=== PATIENT | male | born 1995 | race Caucasian/White ===

== ENCOUNTER 2022-11-16 09:48 | Outpatient (CLI) | payer OTHER, SELFPAY ==
--- NOTE | 2022-11-16 11:27 | XRR_ITS ---
PROCEDURE INFORMATION: Exam: XR Right Tibia and Fibula Exam date and time: 11/16/2022 11:34 AM Age: 27 years old Clinical indication: Other: Lump on right leg; Additional info: Lump on right leg, medial aspect of tibia TECHNIQUE: Imaging protocol: Radiologic exam of the Right tibia and fibula. Views: 2 views. COMPARISON: No relevant prior studies available. FINDINGS: Bones/joints: There is a focal oblong shaped area of cortical/periosteal thickening along the posteromedial cortex mid shaft of the tibia that extends for 4.5 cm in length whose appearance would favor a benign fibro osseous lesion such as a ossifying fibroma or healed fibrous cortical defect. Remaining osseous structures are unremarkable. There is no fracture. Soft tissues: Unremarkable XR/XR tibia fibula RT 2V 19898 IMPRESSION: 4.5 cm cortical based sclerotic bone lesion mid tibia favoring benign fiber osseous lesion. In view of patient's symptomatology would recommend follow-up nonemergent CT or MRI examination of the lower leg for further assessment.
== END 2022-11-16 09:49 | disposition home or self-care (01) ==
PROVIDERS: PCP Clinical Nurse Specialist Adult Health; Visit Provider Clinical Nurse Specialist Adult Health
DX: R22.41 Localized swelling, mass and lump, right lower limb (principal)
CPT/HCPCS: 73590

== ENCOUNTER 2024-08-31 09:03 | Outpatient (CLI) | payer OTHER, SELFPAY ==
--- NOTE | 2024-08-31 09:30 | US_ITS ---
WS: [id number] ULTRASOUND SOFT TISSUES RIGHT groin HISTORY: right inguinal pain and numbness of right anterior thigh COMPARISON: None available. TECHNIQUE: 2-D and color Doppler imaging is submitted. During the initial imaging there is a hypoechoic soft tissue mass along the RIGHT groin measuring 8 x 10 mm. During the examination with transducer pressure in this area the mass resolved and retracted consistent with a RIGHT inguinal hernia. This was omentum only. No bowel was evident within the herni a. US/US soft tissue/extremity [id number] IMPRESSION: 1. Small RIGHT inguinal hernia contains omentum only. The inguinal hernia was reduced during the ultrasound with slight transducer pressure. 2. No herniated bowel loop. Suspect the hernia will recur with the patient upr ight.
== END 2024-08-31 09:04 | disposition home or self-care (01) ==
PROVIDERS: PCP Clinical Nurse Specialist Adult Health; Visit Provider Clinical Nurse Specialist Adult Health
DX: K40.90 Unilateral inguinal hernia, without obstruction or gangrene, not specified as recurrent (principal); R10.31 Right lower quadrant pain; R20.0 Anesthesia of skin
CPT/HCPCS: 76882

== ENCOUNTER 2024-10-05 05:50 | Day surgery (SDC) | payer OTHER, SELFPAY ==
[2024-10-05] VITALS (13 sets, daily range): BP systolic 125–148; BP diastolic 68–86; PULSE 68–83; RESP 15–19; TEMP 36.4–36.8; O2SAT 95–100; BMI 27.1
--- NOTE | 2024-10-05 05:41 | P.HPUD_ITS ---
Surgery/Procedure H&P Update DATE OF PROCEDURE: October 05, 2024 DATE H&P PERFORMED: 09/23/24 H&P UPDATE INFORMATION: I have reviewed H&P completed within last 30 days, I have examined patient prior to procedure, No changes to prior documentation and H&P is in [facility] EMR on date indicated PLANNED PROCEDURE: Operation Date: 10/05/24 07:00 Proposed Procedures p Laparoscopic Inguinal Hernia Repair with mesh/possible open 39884, K40.90(Right) - King Mcgill MD
[2024-10-05] MEDS: sodium chloride 0.9% 1,000 ML 30 ML IV (06:39)
[2024-10-05] MEDS: VANCOMYCIN ADD-Vantage 1,000 MG in 0.9% NaCl ADD-Vantage 250 ML 250 MG IV (06:40)
--- NOTE | 2024-10-05 06:44 | ANES.PREANE2 ---
Pre-Anesthetic Assessment Height/Weight: Height 1.83 m Weight 90.718 kg Temp Pulse Resp BP Pulse Ox O2 Del Method 97.8 F 83 18 142/85 99 Room Air 10/05/24 06:05 10/05/24 06:05 10/05/24 06:05 10/05/24 06:05 10/05/24 06:05 10/05/24 06:12 Operation Date: 10/05/24 07:00 Proposed Procedures p Laparoscopic Inguinal Hernia Repair with mesh/possible open 81253, K40.90(Right) - King Mcgill MD Familial anesthetic complications: None Was Beta Eyad taken within 24 hours: N/A Was Clonidine taken within 24 hours: N/A Last intake: Intake Last Liquid Date 10/04/24 Last Liquid Time 19:30 Last Solid Date 10/04/24 Last Solid Time 19:30 Social No alcohol and No tobacco Exam alert, oriented x 3, clear to auscultation bilaterally and regular rate & rhythm Airway Mallampati: Class II Dentition: other (2 missing teeth) Anesthetic Plan ASA status: 1 Anesthesia: General Risk of > 500 ml blood loss (7ml/kg in children): No Medications/Allergies Home Medications Medication Instructions Recorded Confirmed Last Taken Type No Known Home Medications 11/16/22 09/23/24 Unknown History Allergies Allergy/AdvReac Type Severity Reaction Status Date / Time Penicillins Allergy Severe ADR-unknown Verified 10/01/24 15:51 [facility] Anesthesia Medical History No pertinent past medical history Surgical History Hx of vasectomy 2022 Family History Mother Cancer breast cancer Social History Smoking and tobacco/nicotine status: never used tobacco/nicotine Alcohol intake: current Alcohol intake frequency: holidays/special occasions only Data Anesthesia Cardiac Studies: No Data to Display
[2024-10-05] MEDS: BUPivacaine 0.25% INJ 10 mL INJECTION (07:35)
[2024-10-05] MEDS: lidocaine-epi 1% PF 1:200,000 30 mL SDV (07:35)
--- NOTE | 2024-10-05 08:30 | P.OP_ITS ---
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 Procedure: Patient was brought into the OR, he was placed in a supine position. General anesthesia was given. The abdomen was prepped and draped in usual sterile fashion. Timeout was conducted. A 15 mm infraumbilical incision was made, the incision was deepened until the anterior rectus sheath was identified, the right anterior rectus sheath was opened with electrocautery, the right rectus muscle was retracted laterally given access to the retrorectus space. The Spacemaker was then introduced carefully into the retrorectus space and advanced to the level of the pubic bone with careful palpation. Under visualization the balloon was insufflated and the preperitoneal space was created. I then placed additional 5 mm trocars in the suprapubic and infraumbilical positions on direct visualization. With careful blunt dissection I was able to completely expose the pubic bone, until the midline was visualized and in the medial side of the femoral vein was visualized. I then proceeded with lateral dissection opening the lateral space of [place]. Once the space was created I then concentrated my efforts on dissecting the cord structures, there was a small indirect sac that was carefully debrided used with blunt dissection, I then was able to identify a lipoma of the cord going into the inguinal canal, the lipoma the cord was successfully reduced to the preperitoneal space. The critical view of safety of the myopectineal orifice was achieved. A large right side 3D max mesh was then introduced into the space, the mesh was placed in a way that it will cover the direct indirect and femoral spaces and was given as a 2 cm overlap under the pubic bone. No need for mesh fixation as the hernia is small and the space was completely filled by the mesh. I proceeded to desufflate the properitoneal space and after 1 minute I reinsufflated to ensure that the mesh position was adequate, after verifying this I proceeded to desufflate the space under direct visualization. The trocars were right and removed. The anterior rectus sheath was closed with #0 Vicryl. The wounds were closed with #3-0 Vicryl for subcutaneous tissue #4 Monocryl for the skin. At the end of the procedure all counts were correct, the patient tolerated well the procedure was transferred to PACU in stable condition.
[2024-10-05] MEDS: ondansetron 2 mg/ML SDV 2 mL 4 MG IVP (09:53)
[2024-10-05] MEDS: oxyCODONE 5 mg IR Tab/Cap PO (10:11)
--- NOTE | 2024-10-05 10:45 | ANE.PACU2 ---
Inpatient post-anesthesia follow up: Airway intact: Yes Vital signs: Temperature 97.6 F Pulse Rate 76 Respiratory Rate 18 Blood Pressure 136/72 Pulse Oximetry 98 Oxygen Delivery Me thod Room Air Oxygen Flow Rate 6 Fraction of Inspir ed Oxygen Hydration adequate: Yes Nausea and vomiting: No Pain level: 1 Mental status: Baseline
== END 2024-10-05 10:45 | disposition home or self-care (01) ==
PROVIDERS: PCP Clinical Nurse Specialist Adult Health; Visit Provider Surgery
PROC: (CPT 49650; principal; 2024-10-05 07:00)
DX: K40.90 Unilateral inguinal hernia, without obstruction or gangrene, not specified as recurrent (principal); D17.6 Benign lipomatous neoplasm of spermatic cord
CPT/HCPCS: 49650; 51702; C1781; J1100; J2405; J2704; J3010; J3370; J3490; J7030; J7050